=== PATIENT | female | born 1995 | race Caucasian/White ===

== ENCOUNTER 2021-02-10 21:18 | Emergency (ER) | payer OTHER, SELFPAY ==
[2021-02-10 21:34] VITALS: BP 138/78; PULSE 103; RESP 16; TEMP 36.6; O2SAT 100; BMI 42.9
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
== END 2021-02-10 23:22 | disposition home or self-care (01) ==
PROVIDERS: Emergency Provider Emergency Medicine
DX: R07.89 Other chest pain (principal); M25.512 Pain in left shoulder; R51.9 Headache, unspecified; V89.2XXA Person injured in unspecified motor-vehicle accident, traffic, initial encounter
CPT/HCPCS: 71045; 73030; 99281; 99283